=== PATIENT | female | born 1955 | race African-American/Black ===

== ENCOUNTER → 2016-08-18 | Outpatient (CLI) | payer OTHER ==
--- NOTE | ~2016-08-18 | US5 ---
[facility] A Service of [facility] RADIOLOGY TEXT RESULTS PATIENT: GERMAN GRIFFIN LOCATION: [facility] : 59 UNIT #: [id number] AGE: [address]: MATTHEW DYE MD SEX: F ORDER DR: [id number] [facility] [address] [place], [place] [address] [id number] MR#: [id number] Acc #: [id number] NAME: GERMAN GRIFFIN : 1955 SEX: F STUDY DATE/TIME: 08/18/2016 8:42 UNIT: [facility] ROOM: STUDY DESCRIPTION: US Abdominal Complete Attending Physician: Matthew Dye M.D. Referring Physician: Matthew yDe M.D. Ordering Physician: Matthew Dye M.D. Primary Care Physician: Matthew Dye M.D. MEDICAL IMAGING REPORT This report is preliminary unless electronic signature is present EXAM Abdominal ultrasound. INDICATIONS Elevated liver enzyme levels. PROCEDURE Greene-scale and Doppler imaging of the abdomen. COMPARISON 12/14/2009 FINDINGS Visualized portions of appendix unremarkable. Liver shows increased echotexture. Liver measures 16 cm. No liver mass on submitted images. Unremarkable gallbladder. Right kidney measures 9.8 cm. Common duct measures 4 mm. Submitted images of abdominal aorta and vena cava unremarkable. Left kidney measures 10.8 cm. Spleen measures 9.5 cm. IMPRESSION Increased liver echotexture in keeping with steatosis; otherwise, negative abdominal ultrasound. Dictated by... Harjeet Lopez M.D. THIS IS AN ELECTRONICALLY VERIFIED REPORT Harjeet Lopez M.D. at 08/19/2016 7:08 AM EVANS/joao TD: 08/18/2016 13:18 JOB #: [id number] [facility] A Service [facility] RADIOLOGY TEXT RESULTS PATIENT: GERMAN GRIFFIN LOCATION: [facility] : 59 UNIT #: [id number] AGE: [address]: MATTHEW DYE MD SEX: F ORDER DR: MEDICAL IMAGING REPORT Page 1 of 1 COPY
== END | disposition home or self-care (01) ==
LOC: CWCC 08:24
DX: R94.5 Abnormal results of liver function studies (principal); K76.0 Fatty (change of) liver, not elsewhere classified
CPT/HCPCS: 76700